=== PATIENT | female | born 1980 | race Caucasian/White ===

== ENCOUNTER 2016-08-07 10:48 | Outpatient (CLI) | payer BC ==
--- NOTE | 2016-08-09 13:13 | US ---
EXAM DATE: 08/07/16 PATIENT'S AGE: 35 Patient: IRA MURRELL Facility: [place], [place] Site . Site : 1980 Study: US OB Pelvis [id number]/28/2017 12:56:17 PM Ordering Physician: Mike Vicente Final Report: CLINICAL HISTORY: Check placental fluid, bleeding TECHNIQUE: Real time law scale imaging of the fetus was performed as well as color Doppler and spectral Doppler analysis of the umbilical artery. FINDINGS: Sonographic imaging demonstrates a single living intrauterine gestation. Fetus demonstrates a regular cardiac rate of 148 beats per minute. Fetus has a breech orientation . The placenta lies posterior without evidence of placenta previa. No enid gestational hemorrhage. Amniotic fluid volume appears normal and there is a four-quadrant fluid volume index measurement of 17.4 cm. Cervical length measures 5.7 cm IMPRESSION: Single live intrauterine gestation. Posterior placenta. No findings for hemorrhage. ANGELITO measures 17.4 cm. Dictated by Camila Dyer MD @ Aug 07 2016 1:47PM (Electronic Signature) Report Signed by Proxy. YVONNE
--- NOTE | 2016-08-09 13:20 | US ---
EXAM DATE: 08/07/16 PATIENT'S AGE: 35 Patient: IRA MURRELL Facility: [facility], [place], [place] : 1980 Study: US OB Pelvis [id number]/28/2017 12:57:16 PM Ordering Physician: Mike Vicente Final Report: Final Report: CLINICAL HISTORY: Check placental fluid, bleeding TECHNIQUE: Real time law scale imaging of the fetus was performed as well as color Doppler and spectral Doppler analysis of the umbilical artery. FINDINGS: Sonographic imaging demonstrates a single living intrauterine gestation. Fetus demonstrates a regular cardiac rate of 148 beats per minute. Fetus has a breech orientation . The placenta lies posterior without evidence of placenta previa. No enid gestational hemorrhage. Amniotic fluid volume appears normal and there is a four-quadrant fluid volume index measurement of 17.4 cm. Endovaginal ultrasound demonstrates a cervical length of 6 cm. IMPRESSION: Single live intrauterine gestation. Posterior placenta. No findings for hemorrhage. ANGELITO measures 17.4 cm. Dictated by Camila Dyer MD @ Aug 07 2016 1:47PM Signed by: Camila Dyer MD @08/07/2016 1:49:23 PM (Electronic Signature) DW/Dictated by: Camila Dyer MD @ 08/07/2016 1:50:00 PM (Electronic Signature) Report Signed by Proxy. YVONNE
== END 2016-08-07 12:51 | disposition home or self-care (01) ==
LOC: MW.OBCHECK 10:48 → MW.OB 10:49 → MW.OBCHECK 12:51
PROVIDERS: ATTEND Obstetrics & Gynecology
DX: O09.92 Supervision of high risk pregnancy, unspecified, second trimester (principal); O46.92 Antepartum hemorrhage, unspecified, second trimester; Z3A.23 23 weeks gestation of pregnancy
CPT/HCPCS: 36415; 59025; 76805; 76805-26; 76817; 76817-26; 81001; 85025